=== PATIENT | female | born 1985 | race Caucasian/White ===

== ENCOUNTER 2020-04-29 18:32 | Emergency (ER) | payer SELFPAY ==
[2020-04-29] MEDS ORDERED: Prochlorperazine 10 MG/2 ML SDV IV ONE (19:20)
[2020-04-29] MEDS ORDERED: diphenhydrAMINE 50 MG/ML SDV IVPUSH ONE (19:20)
[2020-04-29] MEDS ORDERED: Sodium Chloride 0.9% 10 ML Syringe FLUSH PRN (19:20)
[2020-04-29] MEDS ORDERED: Lactated Ringers 1,000 ML IV ONE (19:20)
--- NOTE | 2020-04-29 20:58 | EDM.PDOC ---
ED HPI GENERAL MEDICAL PROBLEM - General Chief Complaint: Headache Stated Complaint: MIGRAINE Time Seen by Provider: 04/29/20 19:01 Source of Information: Reports: Patient History Limitations: Reports: No Limitations - History of Present Illness INITIAL COMMENTS - FREE TEXT/NARRATIVE: Patient comes emergency department today with complaints of a migraine. This patient has chronic migraines. She has struggled with a headache for the past week. She takes Topamax and amitriptyline for her chronic migraines. This is not her worst migraine ever. She has had no recent falls trauma or head injury. She does complain of some blurry vision which is typical for her. Some photophobia without phonophobia. Nausea and vomiting. No paresthesias of her upper or lower extremities. No change in the functionality of her upper or lower extremities. No cough congestion shortness of breath difficulty breathing. No chest pain. No abdominal pain. No hematuria dysuria or urinary frequency. No Covid exposure no Covid symptoms. She relates that she has not had much for migraines recently. Treatments [employer]: Reports: NSAIDS Headache Pain Score (Numeric/FACES): 8 - Related Data Allergies Allergy/AdvReac Type Severity Reaction Status Date / Time ketorolac [From Toradol] Allergy Rash Verified 04/29/20 18:54 metoclopramide [From Reglan] Allergy Rash Verified 04/29/20 18:53 ondansetron [From Zofran] Allergy Rash Verified 04/29/20 18:53 prednisone Allergy Rash Verified 04/29/20 18:53 promethazine [From Phenergan] Allergy Rash Verified 04/29/20 18:53 Home Meds: Home Meds Amitriptyline [Elavil] 50 mg PO BEDTIME 04/14/20 [History] Topiramate [Topamax] 100 mg PO BID 04/14/20 [History] metFORMIN HCl [Metformin HCl ER] 500 mg PO DAILY 04/14/20 [History] Past Medical History Neurological History: Reports: Migraines Psychiatric History: Reports: Anxiety, Bipolar, Depression Endocrine/Metabolic History: Reports: Diabetes, Type II Hematologic History: Reports: Other (See Below) Other Hematologic History: van willebrands disease - Past Surgical History GI Surgical History: Reports: Cholecystectomy, Hernia, Abdominal Female Surgical History: Reports: Oophorectomy Other Female Surgeries/Procedures: one ovary due to large cyst Musculoskeletal Surgical History: Reports: Other (See Below) Other Musculoskeletal Surgeries/Procedures:: fx C1 resolved Social & Family History - Family History Family Medical History: No Pertinent Family History - Caffeine Use Caffeine Use: Reports: Soda ED ROS GENERAL - Review of Systems Review Of Systems: Comprehensive ROS is negative, except as noted in HPI. - Physical Exam Exam: See Below Exam Limited By: No Limitations General Appearance: Alert, WD/WN, No Apparent Distress Ears: Normal External Exam, Normal TMs Nose: Normal Inspection, Normal Mucosa Throat/Mouth: Normal Inspection, Normal Lips, Normal Oropharynx, Normal Voice Head Exam: Atraumatic, Normocephalic Neck: Normal Inspection, Supple, Non-Tender Respiratory/Chest: No Respiratory Distress, Lungs Clear, Normal Breath Sounds, No Accessory Muscle Use, Chest Non-Tender Cardiovascular: Normal Peripheral Pulses, Regular Rate, Rhythm GI/Abdominal: Normal Bowel Sounds, Soft, Non-Tender (Female) Exam: Deferred Rectal (Female) Exam: Deferred Neuro Exam (Abbreviated): Alert, Oriented, CN II-XII Intact, Normal Cognition, Normal Gait, Normal Reflexes, No Motor/Sensory Deficits Back Exam: Normal Inspection Extremities: Normal Inspection, Normal Range of Motion, Normal Capillary Refill Psychiatric: Normal Affect, Normal Mood Skin Exam: Warm, Dry, Intact, Normal Color, No Rash Course - Vital Signs Last Recorded V/S: Last Vital Signs Temp 98.2 F 04/29/20 18:54 Pulse 83 04/29/20 18:54 Resp 14 04/29/20 18:54 BP 118/63 04/29/20 18:54 Pulse Ox 97 04/29/20 18:54 - Orders/Labs/Meds Orders: Active Orders 24 hr Category Date Time Status Peripheral IV Insertion Adult [OM.PC] Stat Oth 04/29/20 19:20 Ordered Meds: Medications Discontinued Medications Generic Name Dose Route Start Last Admin Trade Name Freq PRN Reason Stop Dose Admin Diphenhydramine HCl 25 mg 04/29/20 19:20 04/29/20 20:16 Benadryl IVPUSH 04/29/20 19:21 25 mg ONETIME ONE Administration Lactated Ringer's 1,000 mls @ 999 mls/hr 04/29/20 19:20 04/29/20 20:12 Ringers, Lactated IV 04/29/20 20:20 999 mls/hr ONETIME ONE Administration Prochlorperazine Edisylate 5 mg 04/29/20 19:20 04/29/20 20:20 Compazine IV 04/29/20 19:21 5 mg ONETIME ONE Administration Sodium Chloride 10 ml 04/29/20 19:20 Saline Flush FLUSH ASDIRECTED PRN Keep Vein Open - Re-Assessments/Exams Free Text/Narrative Re-Assessment/Exam: 04/29/20 20:57 I did review this patient under the [facility] chart because she stated that she had been seen recently for a migraine. When I review her chart it is quite obvious that she has been hospitalized 3 times in the last month or so for her acute on chronic migraines. She has had a plethora of imaging studies of her head. She does have some chronic migraine she relates related to a cervical fracture in her neck over a year ago that gives her these recurrent chronic migraines. Difficult allergy list for typical migraine therapy. IV LR 1 L wide open. Benadryl 25 mg IV push. Compazine 5 mg IV push. She had aprox 50% improvement of her pounding in her head and feels much better and would like to leave. I discussed that it is important for her to follow in the primary care setting or specialty setting for her chronic migraine. Continue with your previous therapies. She is comfortable with this plan and her questions answered. Departure - Departure Time of Disposition: 21:26 Disposition: Home, Self-Care 01 Clinical Impression: Chronic migraine - Discharge Information Instructions: Recurrent Migraine Headache, [id number], Pain Medicine Instructions, [id number] Referrals: PCP,None [Primary Care Provider] - Forms: ED Department Discharge Additional Instructions: Chronic issues such as chronic migraines are best managed out of the primary care setting with your PCP and or your neurologist that has been established in [place]. Home rest tonight. Decrease stimulation to the brain such as lights sounds and back lit technology like phones and tablets. Keep your follow up with [facility] as previous. Return to the ED if new or worsening symptoms. Sepsis Event Note (ED) - Evaluation Sepsis Screening Result: No Definite Risk - Focused Exam Vital Signs: Vital Signs Temp Pulse Resp BP Pulse Ox 04/29/20 18:54 98.2 F 83 14 118/63 97 - My Orders Last 24 Hours: My Active Orders 04/29/20 19:20 Peripheral IV Insertion Adult [OM.PC] Stat - Assessment/Plan Last 24 Hours: My Active Orders 04/29/20 19:20 Peripheral IV Insertion Adult [OM.PC] Stat
== END 2020-04-29 21:40 | disposition home or self-care (01) ==
LOC: SUPCPDRO 18:32 → VM.ED 18:32
DX: G43.909 Migraine, unspecified, not intractable, without status migrainosus (principal); E11.9 Type 2 diabetes mellitus without complications; Z79.84 Long term (current) use of oral hypoglycemic drugs; Z79.899 Other long term (current) drug therapy; Z88.6 Allergy status to analgesic agent; Z88.8 Allergy status to other drugs, medicaments and biological substances
CPT/HCPCS: 96374; 96375; 99283; 99283-25; J0780; J1200; J7120